=== PATIENT | male | born 1970 | race Caucasian/White ===

== ENCOUNTER 2025-01-13 23:40 | Observation (INO) | payer OTHER ==
[~2025-01-13] VITALS: Ht 172.7 cm; Wt 112.1 kg
[2025-01-14] MEDS ORDERED: Ipratropium/Albuterol SulF 2.5-0.5MG/3 ML Amp INH ONE (00:50)
[2025-01-14 00:56] LABS: BASOPHILS ABSOLUTE AUTO 0.02 K/mm3 (0.00-0.23); BASOPHILS PERCENT AUTO 1 % (0-2); EOSINOPHILS PERCENT AUTO 3 % (0-6); Hematocrit 42.4 % (37.0-53.0); Hemoglobin 13.9 g/dL (13.5-17.5); IMMATURE GRAN ABSOLUTE AUTO 0.01 K/mm3 (0.00-0.10); IMMATURE GRAN PERCENT AUTO 0 % (0-1); LYMPHOCYTES ABSOLUTE AUTO 0.27 K/mm3 (0.84-5.20); LYMPHOCYTES PERCENT AUTO 9 % (21-46); MONOCYTES PERCENT AUTO 10 % (4-13); Mean Corpuscular HGB 27.1 pg (26.0-34.0); Mean Corpuscular HGB Conc 32.8 g/dL (31.5-36.5); Mean Corpuscular Volume 83 fL (80-100); Mean Platelet Volume 9.5 fL (9.1-12.4); NEUTROPHILS ABSOLUTE AUTO 2.44 K/mm3 (1.96-9.15); NEUTROPHILS PERCENT AUTO 78 % (41-73); Platelet Count 113 K/mm3 (150-400); RDW Coefficient Variation 15.4 % (11.7-14.2); Red Blood Cell Count 5.12 M/mm3 (4.30-5.90); White Blood Cell Count 3.14 K/mm3 (4.00-11.30)
[2025-01-14 01:08] LABS: Albumin, Blood 3.3 g/dL (3.4-5.0); Bilirubin, Total 0.4 mg/dL (0.1-1.0); Bun/Creatinine Ratio 22.2 (12.0-20.0); Calcium, Blood 8.7 mg/dL (8.5-10.1); Creatinine, Blood 1.08 mg/dL (0.60-1.20); Globulin, Blood 3.2 g/dL (2.2-4.0); Potassium, Blood 4.7 mmol/L (3.5-5.5); Total Protein, Blood 6.5 g/dL (6.4-8.2)
[2025-01-14] MEDS ORDERED: Azithromycin 500 MG in NS 250 ML IV ONE (01:40)
[2025-01-14] MEDS ORDERED: CefTRIAXone Sodium 1,000 MG in NS 50 ML IV ONE (01:40)
[2025-01-14 02:07] LABS: Influenza B, PCR NEGATIVE (NEGATIVE); Resp Syncytial Virus, PCR NEGATIVE (NEGATIVE); SARS-Cov-2 (COVID-19) PCR, MMC NEGATIVE (NEGATIVE)
[2025-01-14 02:23] LABS: Influenza A, PCR POSITIVE (NEGATIVE)
[2025-01-14] MEDS ORDERED: FURO20 PO (03:25)
[2025-01-14] MEDS ORDERED: LEVSOD100 PO (03:25)
[2025-01-14] MEDS ORDERED: CARV3.125 PO (03:25)
[2025-01-14] MEDS ORDERED: OXYC5 (03:26)
[2025-01-14] MEDS ORDERED: BACL10 PO (03:26)
[2025-01-14] MEDS ORDERED: LOSA25 PO (03:27)
[2025-01-14] MEDS ORDERED: GABA300T24 PO (03:27)
[2025-01-14] MEDS ORDERED: SPIR25 PO (03:27)
[2025-01-14] MEDS ORDERED: ALLO100 PO (03:28)
[2025-01-14] MEDS ORDERED: ELIQUIS5 M3 PO (03:28)
[2025-01-14] MEDS ORDERED: ONDA4ODT SL (03:28)
[2025-01-14] MEDS ORDERED: FOLI1 PO (03:29)
[2025-01-14] MEDS ORDERED: BUPROPION XL150 M1 PO (03:29)
[2025-01-14] MEDS ORDERED: PROTONIX PO (03:30)
[2025-01-14] MEDS ORDERED: Crestor40 MG PO (03:30)
[2025-01-14] MEDS ORDERED: FLU VACC TS2024-25(6MOS UP)/PF 45 MCG/0.5 ML SYRINGE IM ONE (03:35)
[2025-01-14] MEDS ORDERED: Metoclopramide HCl 5MG / ML 2ML Vial IV PRN (03:40)
[2025-01-14] MEDS ORDERED: Ondansetron 4 MG TAB PO PRN (03:40)
[2025-01-14 03:53] LABS: Magnesium, Blood 2.1 mg/dL (1.6-2.4); Phosphorus, Blood 3.4 mg/dL (2.5-4.9)
--- NOTE | 2025-01-14 03:58 | NUR ---
RECEIVED REPORT FROM ED [facility].
[2025-01-14] MEDS ORDERED: NS 1,000 ML IV SCH (04:00)
[2025-01-14] MEDS ORDERED: Benzonatate 100 MG Cap PO ONE (04:00)
[2025-01-14] MEDS ORDERED: Benzonatate 100 MG Cap PO PRN (04:00)
[2025-01-14 04:29] VITALS: BP 140/98
[2025-01-14] MEDS ORDERED: OxyCODONE HCL 5 MG TAB PO PRN (04:55)
[2025-01-14] MEDS ORDERED: Oseltamivir Phosphate 75 MG Cap PO SCH (05:00)
[2025-01-14] MEDS ORDERED: ALBUTEROL HFA 90MCG (05:16)
[2025-01-14] MEDS ORDERED: Pantoprazole Sodium 40 MG Tab PO SCH (06:00)
[2025-01-14] MEDS ORDERED: Levothyroxine Sodium 0.1 MG Tab PO SCH (06:00)
--- NOTE | 2025-01-14 06:05 | NUR ---
SHIFT SUMMARY: ER ADMIT AT 0408. PT IS ALERT AND ORIENTED X 4. ON RA. OCCASIONAL HACKING COUGH. TESSALON GIVEN FOR COUGH. NAUSEA IMPROVED SOME AFTER RECEIVING ZOFRAN AND REGLAN. PT ABLE TO TAKE HIS ORAL MEDS. PER PT'S REQUEST WAS VACCINATED FOR FLU. SWALLOWS PILLS WHOLE WITH WATER WITHOUT DIFFICULTY. USES URINAL AT BEDSIDE. TELE IN PLACE, SINUS AT 90. PT DOES HAVE A PACEMAKER AND AICD. GETS VERY TREMOLOUS WHEN COLD. WARM BLANKETS GIVEN WHICH HELPED PT TO SETTLE DOWN. NS AT 100 MLS/HR INFUSING WITHOUT DIFFICULTY TO RFA. NO BLOOD PRESSURE OR BLOOD DRAWS TO LEFT ARM PER PT REQUEST, STATES HE HAS A BLOOD CLOT. PT IS ON ELIQUIS BID. WILL CONTINUE TO PROVIDE CARE UNTIL SHIFT REPORT TO ONCOMING NURSE.
[2025-01-14] MEDS ORDERED: Guaifenesin/Dextromethorphan Syrup 5 ML UDC PO PRN (06:10)
[2025-01-14 06:20] LABS: BASOPHILS ABSOLUTE AUTO 0.01 K/mm3 (0.00-0.23); BASOPHILS PERCENT AUTO 0 % (0-2); EOSINOPHILS ABSOLUTE AUTO 0.08 K/mm3 (0.00-0.68); EOSINOPHILS PERCENT AUTO 3 % (0-6); Hematocrit 42.7 % (37.0-53.0); Hemoglobin 14.1 g/dL (13.5-17.5); IMMATURE GRAN ABSOLUTE AUTO 0.01 K/mm3 (0.00-0.10); IMMATURE GRAN PERCENT AUTO 0 % (0-1); LYMPHOCYTES ABSOLUTE AUTO 0.32 K/mm3 (0.84-5.20); LYMPHOCYTES PERCENT AUTO 10 % (21-46); MONOCYTES PERCENT AUTO 13 % (4-13); Mean Corpuscular Volume 85 fL (80-100); Mean Platelet Volume 9.6 fL (9.1-12.4); NEUTROPHILS ABSOLUTE AUTO 2.35 K/mm3 (1.96-9.15); NEUTROPHILS PERCENT AUTO 74 % (41-73); Platelet Count 101 K/mm3 (150-400); RDW Coefficient Variation 15.5 % (11.7-14.2); RDW Standard Deviation 47.6 fL (35.1-46.3); Red Blood Cell Count 5.03 M/mm3 (4.30-5.90); White Blood Cell Count 3.17 K/mm3 (4.00-11.30)
[2025-01-14 06:43] LABS: Albumin, Blood 3.2 g/dL (3.4-5.0); Albumin/Globulin Ratio 1.1 (0.8-1.8); Bilirubin, Total 0.2 mg/dL (0.1-1.0); Bun/Creatinine Ratio 20.5 (12.0-20.0); Calcium, Blood 8.6 mg/dL (8.5-10.1); Creatinine, Blood 1.17 mg/dL (0.60-1.20); Potassium, Blood 4.4 mmol/L (3.5-5.5); Total Protein, Blood 6.2 g/dL (6.4-8.2)
[2025-01-14 07:28] VITALS: BP 142/98
[2025-01-14] MEDS ORDERED: Carvedilol 3.125 MG Tab PO SCH (08:00)
[2025-01-14] MEDS ORDERED: Furosemide 20 MG Tab PO SCH (09:00)
[2025-01-14] MEDS ORDERED: Spironolactone 12.5 MG TAB PO SCH (09:00)
[2025-01-14] MEDS ORDERED: buPROPion HCL 150 MG TAB.SR.12H PO SCH (09:00)
[2025-01-14] MEDS ORDERED: Apixaban 5 MG Tab PO SCH (09:00)
[2025-01-14] MEDS ORDERED: Losartan Potassium 25 MG Tab PO SCH (09:00)
[2025-01-14] MEDS ORDERED: Enoxaparin 40 MG/0.4 ML SYR SC SCH (09:00)
[2025-01-14] MEDS ORDERED: Gabapentin 300 MG Cap PO SCH (09:00)
[2025-01-14] MEDS ORDERED: Rosuvastatin Calcium 10 MG Tab PO SCH (09:00)
[2025-01-14] MEDS ORDERED: GABA300 PO (11:20)
[2025-01-14] MEDS ORDERED: TRAZ50 PO (11:20)
[2025-01-14 11:23] VITALS: BP 134/90
[2025-01-14] MEDS ORDERED: BENZ100A PO (16:38)
[2025-01-14] MEDS ORDERED: TAMIFLU PO (16:38)
--- NOTE | 2025-01-14 17:15 | NUR ---
DISCHARGE NOTE PT DISCHARGED TO HOME, PICKED UP BY HIS . DISCHARGE EDUCATION AND INFORMATION PROVIDED TO THE PT AND REVIEWED. MEDICATIONS FAXED TO THE PHARMACY OF HIS CHOICE. PERSONAL BELONGINGS RETURNED. IV REMOVED. TELE RETURNED.
[2025-01-14] MEDS ORDERED: Baclofen 10 MG Tab PO SCH (21:00)
== END 2025-01-14 17:03 | disposition home or self-care (01) ==
LOC: ER 23:40 → ERHOLD 23:41 → MEDS 23:41
PROVIDERS: Emergency Medicine; Student in an Organized Health Care Education/Training Program; ADMIT Internal Medicine
DX: J10.1 Influenza due to other identified influenza virus with other respiratory manifestations (principal); R05.9 Cough, unspecified; K21.9 Gastro-esophageal reflux disease without esophagitis; I11.0 Hypertensive heart disease with heart failure; I50.9 Heart failure, unspecified; D72.819 Decreased white blood cell count, unspecified; E78.5 Hyperlipidemia, unspecified; E06.3 Autoimmune thyroiditis
CPT/HCPCS: 0241U; 36415; 71046; 80053; 83605; 83690; 83735; 84100; 84145; 84484; 85025; 87040; 90656; 93005; 93010; 94640; 94664; 96361; 96365; 96368; 96375; 99285-25; A9270; G0378; J0456; J0696; J2765; J7030; J7050